=== PATIENT | female | born 1980 | race Caucasian/White ===

== ENCOUNTER → 2021-09-26 | Outpatient (CLI) | payer BC ==
--- NOTE | 2021-09-26 08:57 | RAD ---
Examination: Ultrasound abdomen limited HISTORY: History of epigastric pain COMPARISON: None available. FINDINGS: The visualized pancreas grossly appears unremarkable. The visualized aorta, IVC within normal limits of dimension. The liver length measures 13.1 cm. The common bile duct measures 3.8 mm in transverse d imension. The gallbladder is filled with echogenicities likely gallstones with wall echo shadowing.Th e gallbladder wall thickness measures 1.5 mm. The right kidney measures 10.5 x 5.3 x 4.3 cm. IMPRESSION: 1. Cholelithiasis with wall echo shadowing. Electronically signed by: Perry Dove MD (09/26/2021 8:55 AM) [id number]
--- NOTE | 2021-09-26 12:55 | RAD ---
Examination: Hepatobiliary Scan: History: Epigastric pain. Technique: 5.1 mCi technetium 99m Choletec was administered intravenously and spot views were obtain ed on the gamma camera for a Nuclear Medicine hepatobiliary scan. CCK drip was administered over 30 minutes and the region of interest was drawn around the gallbladder and gallbladder ejection fraction was calculated. Findings: There is rapid uptake of activity from the blood pool and concentration in the liver. Activity seen i n the gallbladder and small bowel. There is a rapid response of the gallbladder to CCK and the gallbladder ejection fraction is 61% whic h is normal. Impression: Normal hepatobiliary scan. Normal gallbladder function. Electronically signed by: Perry Dove MD (09/26/2021 12:53 PM) [id number]
== END ==
LOC: US 07:50
PROVIDERS: ATTEND Internal Medicine Gastroenterology
DX: K80.20 Calculus of gallbladder without cholecystitis without obstruction (principal); R10.13 Epigastric pain; R11.2 Nausea with vomiting, unspecified
CPT/HCPCS: 76705; 78227; A9537